=== PATIENT | female | born 1965 | race Caucasian/White ===

== ENCOUNTER 2021-02-27 14:43 | Observation (INO) ==
[2021-02-27 15:50] LABS: Basophils # 0.1 10*3/uL (0.0-0.2); Basophils % 0.9 % (0.0-0.8); Eosinophils % 0.5 % (0.00-10.9); Hematocrit 41.4 VOL% (35.7-47.0); Hemoglobin 11.7 GM/DL (12.0-16.0); Immature Granulocytes % 0.8 %; Immature Granulocytes Absolute 0.06 #; Lymphocytes # 2.4 10*3/uL (1.4-4.0); Mean Corpuscular HGB Conc 28.3 GM/DL (32-36); Mean Corpuscular Volume 83.8 FL (87-102); Mean Platelet Volume 9.6 FL (9.6-12.0); Monocytes % 8.4 % (1.7-12.7); Neutrophils % 58.4 % (38.7-73.9); Platelet Count 267 T/CUMM (130-400); Red Blood Count 4.94 MC/CUMM (3.8-5.5); Red Cell Distribution Width 17.2 % (9.3-17.3); White Blood Count 7.7 T/CUMM (4-12)
[2021-02-27] MEDS ORDERED: ALBUTEROL 2.5 MG/3 ML NEB RESP TX STA ×2 (16:34→16:37)
[2021-02-27] MEDS ORDERED: methylPREDNISolone SOD SUC 40 MG/1 ML VIAL IV STA (16:35)
[2021-02-27] MEDS ORDERED: FUROSEMIDE 40 MG/4 ML VIAL IV STA (16:38)
[2021-02-27] MEDS ORDERED: cefTRIAXone 1,000 MG in SODIUM CHLORIDE 0.9% 100 ML IV STA (16:38)
[2021-02-27 16:58] LABS: Albumin 2.7 G/DL (3.4-5.0); Bilirubin,Total 1.6 MG/DL (0.20-1.00); Calcium 8.2 MG/DL (8.5-10.1); Osmolality,Calculated 275.5 MOS/KG (273-304); Potassium 2.6 MMOL/L (3.5-5.1); Total Protein 6.5 G/DL (6.4-8.2)
[2021-02-27] MEDS ORDERED: POTASSIUM CHLORIDE 20 MEQ TABLET PO STA (17:02)
[2021-02-27] MEDS ORDERED: hydrALAZINE 20 MG/1 ML VIAL IV PRN (17:42)
[2021-02-27] MEDS ORDERED: ONDANSETRON 4 MG/2 ML VIAL IV PRN (17:42)
[2021-02-27] MEDS ORDERED: DEXTROSE 50% 25 GM/50 ML VIAL IV PRN (17:42)
[2021-02-27] MEDS ORDERED: ACETAMINOPHEN 325 MG TABLET PO PRN (17:42)
[2021-02-27] MEDS ORDERED: GLUCAGON 1 MG VIAL IM PRN (17:42)
[2021-02-27] MEDS ORDERED: LACTULOSE 20 GM/30 ML UDCUP PO PRN (17:42)
[2021-02-27] MEDS ORDERED: ALBUTEROL 2.5 MG/3 ML NEB RESP TX PRN (17:42)
[2021-02-27] MEDS ORDERED: MELATONIN 3 MG TABLET PO PRN (17:48)
[2021-02-27] MEDS ORDERED: MAGNESIUM SULF RIDER 4 GM/100 ML PREMIX IV PRN (17:51)
[2021-02-27] MEDS ORDERED: MAGNESIUM SULF RIDER 2 GM/50 ML PREMIX IV PRN (17:51)
[2021-02-27] MEDS: methylPREDNISolone SOD SUC 40 MG/1 ML VIAL IV SCH (18:16)
[2021-02-27] MEDS: ENOXAPARIN 40 MG/0.4 ML SYRINGE SUBCUT SCH (20:04)
[2021-02-27] MEDS: guaiFENesin/DM ER 600-30 MG TABLET PO SCH (20:04)
[2021-02-27] MEDS: BUDESONIDE/FORMOTEROL 160-4.5 INHALER 6 GM INH SCH (20:05)
[2021-02-27 21:46] LABS: Bilirubin,Urine Negative (Negative); Blood, Urine Negative (Negative); Glucose,Urine (UA) Negative (Negative); Hyaline Casts,Urine 3 /LPF (0-3); Ketones,Urine Negative (Negative); Mucus,Urine Occasional /LPF (Occasional); Nitrite,Urine Negative (Negative); Protein,Urine Negative; RBC,Urine 1 /HPF (0-4); Squamous Epithelial Cell,Urine Occasional /HPF (0-10); Urine Appearance CLEAR (Clear); Urine Color Straw (Yellow); Urine Specific Gravity 1.005 (1.001-1.035); Urine Urobilinogen < 2.0 EU/DL (0.2-1.0)
[2021-02-28] MEDS: ALBUTEROL/IPRATROPIUM 3 ML NEB RESP TX SCH ×5 (00:19→19:45)
[2021-02-28] MEDS: methylPREDNISolone SOD SUC 40 MG/1 ML VIAL IV SCH ×2 (05:14→17:15)
[2021-02-28 07:14] LABS: Calcium 8.5 MG/DL (8.5-10.1); Osmolality,Calculated 262.8 MOS/KG (273-304); Risk Ratio 5.34; Thyroid Stimulating Hormone 0.83 uIU/ml (0.358-3.74); VLDL Cholesterol 34.8 MG/DL
[2021-02-28 07:18] LABS: Potassium 2.5 MMOL/L (3.5-5.1)
[2021-02-28 07:24] LABS: Basophils % 0.3 % (0.0-0.8); Hematocrit 40.6 VOL% (35.7-47.0); Hemoglobin 11.9 GM/DL (12.0-16.0); Immature Granulocytes % 0.8 %; Immature Granulocytes Absolute 0.06 #; Lymphocytes # 0.6 10*3/uL (1.4-4.0); Lymphocytes % 8.7 % (21.3-54.2); Mean Corpuscular HGB Conc 29.3 GM/DL (32-36); Mean Corpuscular Volume 82.7 FL (87-102); Mean Platelet Volume 10.7 FL (9.6-12.0); Monocytes % 1.8 % (1.7-12.7); Neutrophils % 88.4 % (38.7-73.9); Platelet Count 269 T/CUMM (130-400); Red Blood Count 4.91 MC/CUMM (3.8-5.5); Red Cell Distribution Width 16.9 % (9.3-17.3); White Blood Count 7.4 T/CUMM (4-12)
[2021-02-28] MEDS ORDERED: POTASSIUM CHLORIDE RIDER 10 MEQ/100 ML PREMIX IV PRN (08:25)
[2021-02-28] MEDS: PANTOPRAZOLE 40 MG TABLET PO SCH (08:52)
[2021-02-28] MEDS: guaiFENesin/DM ER 600-30 MG TABLET PO SCH ×2 (08:52→20:39)
[2021-02-28] MEDS: AZITHROMYCIN 250 MG TABLET PO SCH (08:52)
[2021-02-28] MEDS: BUDESONIDE/FORMOTEROL 160-4.5 INHALER 6 GM INH SCH ×2 (08:53→20:39)
[2021-02-28] MEDS ORDERED: MAGNESIUM SULF RIDER 2 GM/50 ML PREMIX IV ONE (08:59)
[2021-02-28] MEDS: POTASSIUM CHLORIDE 20 MEQ TABLET PO SCH ×3 (10:00→20:39)
[2021-02-28 13:32] LABS: Calcium 8.4 MG/DL (8.5-10.1); Osmolality,Calculated 273.2 MOS/KG (273-304)
[2021-02-28 13:52] LABS: ABG HCO3 38.9 MMOL/L (20-26); ABG PCO2 54.6 MM HG (35-48); ABG PH 7.486 (7.35-7.45); ABG PO2 86.3 MM HG (80-95); ABG TCO2 36.3 MMOL/L (23-27)
[2021-02-28] MEDS: ENOXAPARIN 40 MG/0.4 ML SYRINGE SUBCUT SCH (17:15)
[2021-03-01] MEDS: ALBUTEROL/IPRATROPIUM 3 ML NEB RESP TX SCH ×3 (00:30→13:42)
[2021-03-01] MEDS: methylPREDNISolone SOD SUC 40 MG/1 ML VIAL IV SCH ×2 (05:49→18:00)
[2021-03-01 05:56] LABS: Calcium 8.6 MG/DL (8.5-10.1); Potassium 3.5 MMOL/L (3.5-5.1)
[2021-03-01 06:21] LABS: Basophils % 0.1 % (0.0-0.8); Eosinophils % 0.1 % (0.00-10.9); Hematocrit 38.7 VOL% (35.7-47.0); Immature Granulocytes % 1.1 %; Lymphocytes # 0.6 10*3/uL (1.4-4.0); Mean Corpuscular HGB Conc 29.5 GM/DL (32-36); Mean Corpuscular Volume 82.5 FL (87-102); Mean Platelet Volume 10.1 FL (9.6-12.0); Monocytes % 7.1 % (1.7-12.7); Neutrophils % 84.6 % (38.7-73.9); Platelet Count 249 T/CUMM (130-400); Red Blood Count 4.69 MC/CUMM (3.8-5.5); Red Cell Distribution Width 17.2 % (9.3-17.3)
[2021-03-01 06:22] LABS: Hemoglobin 11.4 GM/DL (12.0-16.0)
[2021-03-01 07:06] LABS: Osmolality,Calculated 264.8 MOS/KG (273-304)
[2021-03-01] MEDS: PANTOPRAZOLE 40 MG TABLET PO SCH (09:21)
[2021-03-01] MEDS: MAGNESIUM CHLORIDE 64 MG TABLET PO SCH (09:21)
[2021-03-01] MEDS: guaiFENesin/DM ER 600-30 MG TABLET PO SCH ×2 (09:21→21:09)
[2021-03-01] MEDS: POTASSIUM CHLORIDE 20 MEQ TABLET PO SCH ×3 (09:21→21:09)
[2021-03-01] MEDS: AZITHROMYCIN 250 MG TABLET PO SCH (09:21)
[2021-03-01] MEDS: BUDESONIDE/FORMOTEROL 160-4.5 INHALER 6 GM INH SCH ×2 (09:23→21:08)
[2021-03-01] MEDS ORDERED: PROMETHAZINE 25 MG TABLET PO PRN (10:37)
[2021-03-01] MEDS ORDERED: DICLOFENAC SODIUM 75 MG TABLET PO PRN (10:37)
[2021-03-01] MEDS ORDERED: diphenhydrAMINE CAP 25 MG CAPSULE PO PRN (10:43)
[2021-03-01] MEDS: FUROSEMIDE 20 MG/2 ML VIAL IV SCH (15:47)
[2021-03-01] MEDS: ENOXAPARIN 40 MG/0.4 ML SYRINGE SUBCUT SCH (18:00)
[2021-03-01] MEDS ORDERED: SIMVASTATIN 10 MG TABLET PO SCH (21:00)
[2021-03-02] MEDS: ALBUTEROL/IPRATROPIUM 3 ML NEB RESP TX SCH ×2 (01:00→07:10)
[2021-03-02] MEDS: methylPREDNISolone SOD SUC 40 MG/1 ML VIAL IV SCH (05:45)
[2021-03-02 06:07] LABS: Calcium 8.9 MG/DL (8.5-10.1); Osmolality,Calculated 274.1 MOS/KG (273-304); Potassium 4.7 MMOL/L (3.5-5.1)
[2021-03-02 06:33] LABS: Basophils % 0.1 % (0.0-0.8); Hematocrit 40.4 VOL% (35.7-47.0); Hemoglobin 11.4 GM/DL (12.0-16.0); Immature Granulocytes Absolute 0.09 #; Lymphocytes # 0.6 10*3/uL (1.4-4.0); Lymphocytes % 6.3 % (21.3-54.2); Mean Corpuscular HGB Conc 28.2 GM/DL (32-36); Mean Corpuscular Volume 84.5 FL (87-102); Mean Platelet Volume 10.4 FL (9.6-12.0); Monocytes % 4.5 % (1.7-12.7); Neutrophils % 88.1 % (38.7-73.9); Platelet Count 251 T/CUMM (130-400); Red Blood Count 4.78 MC/CUMM (3.8-5.5); Red Cell Distribution Width 17.5 % (9.3-17.3); White Blood Count 8.7 T/CUMM (4-12)
[2021-03-02] MEDS: FUROSEMIDE 20 MG/2 ML VIAL IV SCH (08:59)
[2021-03-02] MEDS ORDERED: ARIPiprazole 5 MG TABLET PO SCH (09:00)
[2021-03-02] MEDS: guaiFENesin/DM ER 600-30 MG TABLET PO SCH (09:00)
[2021-03-02] MEDS ORDERED: NON-FORMULARY MEDICATION (Umeclidinium-Vilanterol [Anoro Ellipta] 62.5-25 mcg/actuation Bl INH SCH (09:00)
[2021-03-02] MEDS ORDERED: DULoxetine 30 MG CAPSULE PO SCH (09:00)
[2021-03-02] MEDS: AZITHROMYCIN 250 MG TABLET PO SCH (09:00)
[2021-03-02] MEDS: MAGNESIUM CHLORIDE 64 MG TABLET PO SCH (09:00)
[2021-03-02] MEDS: POTASSIUM CHLORIDE 20 MEQ TABLET PO SCH (09:00)
[2021-03-02] MEDS: PANTOPRAZOLE 40 MG TABLET PO SCH (09:00)
[2021-03-02] MEDS ORDERED: FLUTICASONE 50 MCG NASAL SPRAY 16 GM BOTTLE BOTH NARES SCH (09:00)
[2021-03-02] MEDS: BUDESONIDE/FORMOTEROL 160-4.5 INHALER 6 GM INH SCH (09:01)
[2021-03-02 11:03] VITALS: BP 118/72
== END 2021-03-02 12:38 | disposition home health service (06) ==
LOC: EDBD → EDUNIT# → N.ED 14:43 → N.EDINP 14:43 → N.3E 18:51
PROVIDERS: ADMIT Hospitalist; ATTEND Hospitalist